=== PATIENT | male | born 1970 | race Caucasian/White ===

== ENCOUNTER 2025-05-30 17:19 | Emergency (ER) | payer SELFPAY ==
[~2025-05-30] VITALS: Ht 175.3 cm; Wt 85.0 kg
[2025-05-30 17:24] VITALS: BP 164/90; PULSE 90; RESP 19; TEMP 37.3; O2SAT 98
== END 2025-05-30 19:28 | disposition left against medical advice (07) ==
LOC: ER 17:19
DX: K08.89 Other specified disorders of teeth and supporting structures (principal); Z53.21 Procedure and treatment not carried out due to patient leaving prior to being seen by health care provider